=== PATIENT | female | born 1980 | race Caucasian/White ===

== ENCOUNTER 2020-09-09 17:39 | Emergency (ER) | payer BC ==
[~2020-09-09] VITALS: Ht 160 cm; Wt 88.5 kg
[~2020-09-09 17:39] MED LIST: ALBUTEROL INHAL17 GM IH; ALBUTEROL2.5 MG/0.1 IH; AZITHROMYCIN 2250 MG PO; CLARITIN5 MG PO; GEODON; IBUPROFEN 200200 M1 PO; LAMICTAL; PREDNISONE50 MG PO; PRILOSEC2.5 MG PO; PROZAC; RONDEC SYRUP473 ML PO; SYMBICORT80 MCG/4.1 INH
[2020-09-09 17:57] VITALS: BP 137/78
[2020-09-09] MEDS ORDERED: ESTRADIOL 1 MG T1 M1 PO (18:01)
[2020-09-09] MEDS ORDERED: LIPITOR10 MG PO (18:01)
[2020-09-09] MEDS ORDERED: TOPAMAX100 MG PO (18:02)
[2020-09-09 18:45] LABS: INFLUENZA A ANTIGEN Negative (Negative); INFLUENZA B ANTIGEN Negative (Negative)
== END 2020-09-09 19:30 | disposition home or self-care (01) ==
LOC: M.ERS 17:39
PROVIDERS: Physician Assistant
DX: J06.9 Acute upper respiratory infection, unspecified (principal); Z20.828 Contact with and (suspected) exposure to other viral communicable diseases; J45.909 Unspecified asthma, uncomplicated; Z88.1 Allergy status to other antibiotic agents; Z90.89 Acquired absence of other organs

== ENCOUNTER 2020-11-16 13:53 | Emergency (ER) | payer BC ==
[~2020-11-16] VITALS: Ht 160 cm; Wt 86.6 kg
[~2020-11-16 13:53] MED LIST changes: +ESTRADIOL 1 MG T1 M1 PO; +LIPITOR10 MG PO; +TOPAMAX100 MG PO
[2020-11-16] MEDS ORDERED: ZYRTEC10 M5 PO (14:14)
[2020-11-16] MEDS ORDERED: GABAPENTIN100 MG PO (14:14)
[2020-11-16] MEDS ORDERED: SUPER THERAVIT1 EACH PO (14:15)
[2020-11-16] MEDS ORDERED: BACLOFEN 10MG T10 MG PO (14:15)
[2020-11-16 14:56] VITALS: BP 115/78
== END 2020-11-16 14:56 | disposition home or self-care (01) ==
LOC: M.ERS 13:53
DX: Z20.828 Contact with and (suspected) exposure to other viral communicable diseases (principal); F17.210 Nicotine dependence, cigarettes, uncomplicated; Z88.1 Allergy status to other antibiotic agents; Z90.89 Acquired absence of other organs

== ENCOUNTER 2020-11-19 13:20 | Emergency (ER) | payer BC ==
[~2020-11-19] VITALS: Ht 160 cm; Wt 86.6 kg
[~2020-11-19 13:20] MED LIST changes: +BACLOFEN 10MG T10 MG PO; +GABAPENTIN100 MG PO; +SUPER THERAVIT1 EACH PO; +ZYRTEC10 M5 PO
[2020-11-19 14:14] VITALS: BP 133/67
== END 2020-11-19 14:15 | disposition home or self-care (01) ==
LOC: M.ERS 13:20
DX: B34.9 Viral infection, unspecified (principal); J45.909 Unspecified asthma, uncomplicated; F17.210 Nicotine dependence, cigarettes, uncomplicated; Z90.89 Acquired absence of other organs; Z79.899 Other long term (current) drug therapy; Z88.8 Allergy status to other drugs, medicaments and biological substances; Z20.828 Contact with and (suspected) exposure to other viral communicable diseases

== ENCOUNTER 2021-02-24 00:17 | Emergency (ER) | payer BC ==
[~2021-02-24] VITALS: Ht 160 cm; Wt 90.7 kg
[2021-02-24] MEDS ORDERED: OMEPRAZOLE 20 M20 M1 PO (00:59)
[2021-02-24] MEDS ORDERED: GEODON60 MG PO (00:59)
[2021-02-24] MEDS ORDERED: POTASSIUM GLUCO99 M2 PO (00:59)
[2021-02-24] MEDS ORDERED: LAMICTAL150 MG PO (01:00)
[2021-02-24] MEDS ORDERED: HYDROXYZINE HCL25 M2 PO (01:00)
[2021-02-24] MEDS ORDERED: LIORESAL 10 MG10 MG PO (01:00)
[2021-02-24] MEDS ORDERED: CALCIUM500 MG PO (01:01)
[2021-02-24] MEDS ORDERED: LIPITOR 20 MG T20 M1 PO (01:01)
[2021-02-24] MEDS ORDERED: NEURONTIN 300M300 M2 PO (01:01)
[2021-02-24] MEDS ORDERED: XYZAL5 MG PO (01:02)
[2021-02-24] MEDS ORDERED: TOPAMAX200 MG PO (01:02)
[2021-02-24 01:51] LABS: URINE BILIRUBIN NEGATIVE (Negative); URINE BLOOD NEGATIVE (Negative); URINE CLARITY CLEAR; URINE COLOR YELLOW; URINE GLUCOSE-RANDOM NEGATIVE (Negative); URINE KETONES TRACE (Negative); URINE LEUKOCYTES-REFLEX NEGATIVE (Negative); URINE NITRITE-REFLEX NEGATIVE (Negative); URINE PROTEIN NEGATIVE (Negative); URINE SPECIFIC GRAVITY 1.025 (1.005-1.030); URINE UROBILINOGEN 0.2 E.U./dl (0.2-1.0)
[2021-02-24 01:57] LABS: AMP/METHAMP Negative (Negative); BARBITURATES Negative (Negative); BENZODIAZEPINES Negative (Negative); COCAINE Negative (Negative); METHADONE Negative (Negative); OPIATES Negative (Negative); PCP Negative (Negative); THC POSITIVE (Negative)
[2021-02-24 01:58] LABS: ABSOLUTE BASOPHILS 0.1 thou/uL (0.0-0.2); ABSOLUTE EOSINOPHILS 0.5 thou/uL (0.0-0.7); ABSOLUTE LYMPHOCYTES 2.4 thou/uL (0.8-5.3); ABSOLUTE MONOCYTES 0.5 thou/uL (0.0-1.2); ABSOLUTE NEUTROPHILS 5.2 thou/uL (1.6-8.1); BASOPHILS 1.1 %; EOSINOPHILS 5.7 %; HEMATOCRIT 38.7 % (37.0-47.0); HEMOGLOBIN 12.8 gm/dL (12.0-15.0); LYMPHOCYTES 27.4 %; MCH 30.4 pg (26.0-34.0); MCV 92.1 fL (80.0-100.0); MONOCYTES 5.8 %; NUCLEATED RBCS 0 /100WBC; PLATELET COUNT* 247 thou/uL (150-400); RDW-CV 13.2 % (10.5-14.5); WBC 8.7 thou/uL (4.0-11.0)
[2021-02-24 02:07] LABS: CALCIUM 8.3 mg/dL (8.5-10.1); CREATININE 0.9 mg/dL (0.6-1.3); POTASSIUM 3.6 mmol/L (3.5-5.1)
[2021-02-24 02:12] LABS: ALBUMIN 3.5 g/dL (3.4-5.0); TOTAL BILIRUBIN 0.2 mg/dL (<0.1-1.0); TOTAL PROTEIN 6.7 g/dL (6.4-8.2)
[2021-02-24 02:16] LABS: ALCOHOL < 10 mg/dL (<10); SALICYLATE 4.5 mg/dL (2.8-20.0)
[2021-02-24 02:19] LABS: ACETAMINOPHEN < 2 ug/mL (10-30)
[2021-02-24 05:20] VITALS: BP 130/60
== END 2021-02-24 05:20 | disposition home or self-care (01) ==
LOC: M.ERS 00:17
PROVIDERS: Emergency Medicine
DX: F30.9 Manic episode, unspecified (principal); J45.909 Unspecified asthma, uncomplicated; F17.210 Nicotine dependence, cigarettes, uncomplicated; Z88.1 Allergy status to other antibiotic agents; Z90.89 Acquired absence of other organs; Z88.8 Allergy status to other drugs, medicaments and biological substances; Z79.899 Other long term (current) drug therapy